=== PATIENT | male | born 1995 | race Caucasian/White ===

== ENCOUNTER 2017-04-15 14:09 | Emergency (ER) | payer MEDICAID ==
[~2017-04-15] VITALS: Ht 175.3 cm; Wt 127.2 kg
[~2017-04-15 14:09] MED LIST: ALBU8.5H4 IH; BUPR300T86; CLIN-79 PO; CLIN-80 PO; CYCL-1 PO; GUAI120015 PO; HYDR-569 PO; PSEU-259 PO
[2017-04-15 14:46] VITALS: BP 140/91
[2017-04-15] MEDS ORDERED: DOXY100C43 PO (16:34)
== END 2017-04-15 16:58 | disposition home or self-care (01) ==
LOC: ER 14:10
DX: L03.313 Cellulitis of chest wall (principal); J45.909 Unspecified asthma, uncomplicated; F12.10 Cannabis abuse, uncomplicated; Z86.14 Personal history of Methicillin resistant Staphylococcus aureus infection; Z98.890 Other specified postprocedural states; Z88.2 Allergy status to sulfonamides; Z88.1 Allergy status to other antibiotic agents
CPT/HCPCS: 82948; 99283